=== PATIENT | male | born 1950 | race Caucasian/White ===

== ENCOUNTER 2019-10-10 07:18 | Inpatient (IN) ==
[2019-10-10] MEDS ORDERED: ASPIRIN PO ONE (07:25)
[2019-10-10] MEDS ORDERED: ASPIRIN PR ONE (07:25)
[2019-10-10 07:43] LABS: BASO# 0.03 X1000 (0.0-0.2); BASO% 0.2 % (0.0-0.8); EOS# 0.21 X1000 (0.0-0.7); EOS% 1.5 % (0.0-10.0); HEMATOCRIT 41.2 % (42.0-52.0); HEMOGLOBIN 13.5 g/dL (14.0-18.0); IMM GRAN# 0.04 X1000 (0.0-0.04); IMM GRAN% 0.3 % (0.0-0.5); LYMPH# 1.93 X1000 (1.2-3.4); LYMPH% 14.1 % (20.5-51.1); MCH 27.6 PG (27-31); MCHC 32.8 g/dL (33-37); MCV 84.3 FL (81-99); MONO# 1.01 X1000 (0.11-0.59); MONO% 7.4 % (1.7-9.3); MPV 10.1 FL (7.4-10.4); NEUT# 10.46 X1000 (1.4-6.5); NEUT% 76.5 % (42.2-75.2); PLT 297 X1000 (130-400); RBC 4.89 XMIL (4.7-6.1); RDW 14.2 % (11.5-14.5); WBC 13.68 X1000 (4.8-10.8)
--- NOTE | 2019-10-10 07:45 | PROVIDER DOCUMENTATION ---
HPI-Cardiac General - General Chief Complaint: Chest Pain Stated Complaint: CHEST PAIN Time Seen by Provider: 10/10/19 07:32 Allergies/Adverse Reactions: Patient Allergies Allergy/AdvReac Type Severity Reaction Status Date / Time No Known Allergies Allergy Verified 03/11/19 20:05 Home Medications: Home Medication List Medication Instructions Recorded Confirmed Last Taken Type ATORVAstatin [Lipitor] 40 mg PO QHS 03/29/15 10/10/19 03/28/15 History Glipizide 10 mg PO DAILY 03/29/15 10/10/19 03/28/15 History Lisinopril 5 mg PO DAILY 03/29/15 10/10/19 03/28/15 History Metformin [Glucophage] 500 mg PO BID CC 03/29/15 10/10/19 03/28/15 History Aspirin 81 mg PO DAILY 10/10/19 10/10/19 Unknown History Metoprolol Succinate 50 mg PO DAILY 10/10/19 10/10/19 Unknown History Sitagliptin Phosphate [Januvia] 100 mg PO DAILY 10/10/19 10/10/19 Unknown History - History of Present Illness-Cardiac Nature of Presenting Problem: 68 y/o male with history of CAD, HTN, DM presented with left sided chest pain that woke him this morning at 2am, not positional or pleuritic. patient denied fever or cough Location: reports: substernal Quality of Pain: reports: pressure, tightness Severity in ED: moderate Onset/Duration: abrupt Timing: still present, improving Context/Activities at Onset: reports: none Modifying Factors: improves with: nothing History of arrythmia: reports: none Recent use of:: reports: no stimulants. denies: caffeine, decongestant, cocaine, amphetamine Associated Symptoms: denies: abdominal pain Similar Symptoms Previously?: No Recently Seen Here or By Another Healthcare Provider: No Review of Systems - Adult - REVIEW OF SYSTEMS - ADULT Constitutional: denies: fever, fatique Eyes: reports: no symptoms reported Ears, Nose, Mouth & Throat: reports: no symptoms reported Cardiovascular: reports: see HPI, chest pain Respiratory: reports: see HPI. denies: cough Gastrointestinal: reports: no symptoms reported Genitourinary: reports: no symptoms reported Musculoskeletal: reports: no symptoms reported Integumentary: reports: no symptoms reported Neurological: reports: no symptoms reported Psychiatric: reports: no symptoms reported Endocrine: reports: no symptoms reported Hematologic/Lymphatic: reports: no symptoms reported Allergic/Immunologic: reports: no symptoms reported Past History - Adult - PAST MEDICAL HISTORY-ADULT Review of Records: reports: Nursing Assessment Review Major Childhood Illnesses: reports: denies history Cardiovascular: reports: CAD, HTN, hyperlipidemia, [place] Endocrine/Immune: reports: Diabetes - PRIOR SURGERIES/PROCEDURES Surgical/Procedure History: reports: appendectomy, CABG, cardiac stent, tonsillectomy - IMMUNIZATION STATUS Childhood Immunizations: See Nurse Assessment Flu Vaccine: See Nurse Assessment - FAMILY HISTORY Family History: reviewed, not pertinent Physical Exam-General - PHYSICAL EXAM-ADULT Initial Vital Signs Reviewed: Yes - CONSTITUTIONAL General Appearance: alert, no apparent distress - EYES Eyes: PERRL/EOMI - HEAD, EARS, NOSE, MOUTH & THROAT HENMT: normocephalic/atraumatic, moist mucous membranes - NECK Neck: non-tender, supple - RESPIRATORY Respiratory: chest non-tender, lungs clear, normal breath sounds, no pleuratic chest pain, no respiratory distress, no accessory muscle use - CARDIOVASCULAR Cardiovascular: normal peripheral pulses, regular rate, rhythm, no edema, no gallop, no JVD, no murmur - GASTROINTESTINAL (ABDOMEN) Abdominal Exam: non tender, soft - LYMPHATIC Lymphatic: no adenopathy - MUSCULOSKELETAL Back Exam: no CVA tenderness, no vertebral tenderness Extremity: non-tender, normal gait - SKIN Integumentary: normal turgor, warm/dry - NEUROLOGIC Neurologic: grossly normal, no motor/sensory deficits - PSYCHIATRIC Psych/Mental Status: normal mood/affect - HEART Score HEART Score: History: Slightly Suspicious HEART Score: ECG: Non-Specific Repolarization Disturbance/LBBB/PM HEART Score: Age: > or = 65 Years HEART Score: Risk Factors for Atherosclerotic Disease: > or = 3 Risk Factors or History of Atherosclerotic Disease HEART Score: Troponin: < or = Normal Limit Total HEART Score:: 5 Progress - PLAN OF CARE/RESULTS Progress/Plan/Lab Results: Vital Signs - 8 hr 10/10/19 07:22 Temperature 96.9 F L Pulse Rate 58 L Respiratory Rate 18 Blood Pressure 185/76 O2 Sat by Pulse Oximetry 99 Laboratory Results - last 24 hr 10/10/19 10/10/19 10/10/19 07:31 07:31 07:31 WBC 13.68 H RBC 4.89 Hgb 13.5 L Hct 41.2 L MCV 84.3 MCH 27.6 MCHC 32.8 L RDW Std Deviation 14.2 Plt Count 297 MPV 10.1 Immature Gran % (Auto) 0.3 Neut % (Auto) 76.5 H Lymph % (Auto) 14.1 L Hudson % (Auto) 7.4 Eos % (Auto) 1.5 Baso % (Auto) 0.2 Immature Gran # (Auto) 0.04 Neut # (Auto) 10.46 H Lymph # (Auto) 1.93 Hudson # (Auto) 1.01 H Eos # (Auto) 0.21 Baso # (Auto) 0.03 PT INR PTT (Actin FS) Sodium 140 Potassium 4.5 Chloride 102 Carbon Dioxide 25 Anion Gap 13 BUN 13 Creatinine 0.9 Estimated GFR/1.73 m2 > 60 BUN/Creatinine Ratio 14 Glucose 257 H Calculated Osmolality 288 Calcium 9.6 Total Bilirubin 0.30 AST 16 ALT 14 Alkaline Phosphatase 61 Creatine Kinase 225 H Creatine Kinase Index 1.8 CK-MB (CK-2) 4.09 Troponin T Cof-F-Jvbxqohtgop Pept 206 Total Protein 7.3 Albumin 4.5 Globulin 3.0 Albumin/Globulin Ratio 2.0 10/10/19 10/10/19 07:31 07:31 WBC RBC Hgb Hct MCV MCH MCHC RDW Std Deviation Plt Count MPV Immature Gran % (Auto) Neut % (Auto) Lymph % (Auto) Hudson % (Auto) Eos % (Auto) Baso % (Auto) Immature Gran # (Auto) Neut # (Auto) Lymph # (Auto) Hudson # (Auto) Eos # (Auto) Baso # (Auto) PT 12.6 INR 0.90 PTT (Actin FS) 30.8 Sodium Potassium Chloride Carbon Dioxide Anion Gap BUN Creatinine Estimated GFR/1.73 m2 BUN/Creatinine Ratio Glucose Calculated Osmolality Calcium Total Bilirubin AST ALT Alkaline Phosphatase Creatine Kinase Creatine Kinase Index CK-MB (CK-2) Troponin T < 0.010 Aft-U-Poclrcwffud Pept Total Protein Albumin Globulin Albumin/Globulin Ratio Orders Category Date Time Status Cardiac Monitoring DIRECTED Care 10/10/19 07:25 Active Oxygen Therapy- ED Nursing DIRECTED Care 10/10/19 07:25 Active Saline Loc NOW Care 10/10/19 07:25 Active CHEST-2 VIEWS [RAD] Stat Exams 10/10/19 07:25 Completed CBC WITH ELECTRONIC DIFF [HEME] Stat Lab 10/10/19 07:31 Completed CK PROFILE [SP CHEM] Stat Lab 10/10/19 07:31 Completed COMPREHENSIVE METABOLIC PANEL [CHEM] Stat Lab 10/10/19 07:31 Completed PRO B-NATRIURETIC PEPTIDE Stat Lab 10/10/19 07:31 Completed PROTIME WITH INR [COAG] Stat Lab 10/10/19 07:31 Completed PTT [COAG] Stat Lab 10/10/19 07:31 Completed TROPONIN T Stat Lab 10/10/19 07:31 Completed Aspirin Med 10/10/19 07:25 Discontinued 300 mg FL NOW ONE Aspirin Med 10/10/19 07:25 Discontinued 325 mg PO NOW ONE CP/SOB/Palp >45 yrs of Age Stat Oth 10/10/19 07:25 Ordered EKG [EKG] Stat Ther 10/10/19 07:25 Ordered Result Diagrams: 10/10/19 07:31 10/10/19 07:31 - REASSESSMENT Reassessment #1 Time Reassessed: 09:17 Status: improving (no more chest pain, cabg in 2017, body painter Dr Sky) - EKG 1 Time of EKG reading by physician:: 07:31 EKG Interpretation (*Must complete 3 of following elements*): Normal Rate: 57 Rhythm: itz Novice: normal QRS: normal - CONSULTS/PCP/HOSPITALIST Notification #1 *Consult/PCP/Hospitalist*: Dr Ambrocio Time Discussed: 09:10 Consult Disposition: Will see in ED, Admit Departure - Departure Date of Disposition Decision: 10/10/19 Time of Disposition Decision: 09:17 DIAGNOSIS: Chest pain Qualifiers: Chest pain type: unspecified Qualified Code(s): R07.9 - Chest pain, unspecified Disposition: ADMITTED INPATIENT 09 Certified Medical Emergency: Emergent Condition: Good Referrals and Follow-Ups: Marciano Cardenas MD [Primary Care Provider] - - Critical Care Note This patient required my direct & personal management of CC.: No Attestation - Physician/ LILI Attestation Patient care was provided by Advanced Practice Provider:: No The physician spent face to face time with patient:: Yes Advanced Practice Provider documentation review:: Supervising physician onsite and consulted in the evaluation and care of this patient. The physician did have a face to face encounter with the patient.
[2019-10-10 07:57] LABS: INR 0.9; PROTIME 12.6 Seconds (11.0-16.0)
[2019-10-10 07:58] LABS: PTT 30.8 Seconds (22.3-41.8)
[2019-10-10 08:04] LABS: AGAP 13; ALBUMIN 4.5 g/dL (3.5-5.0); ALKALINE PHOSPHATASE 61 U/L (32-122); BUN 13 mg/dL (8-22); CALCIUM 9.6 mg/dL (8.8-10.2); CHLORIDE 102 mmol/L (98-107); COSMO 288; CREATININE 0.9 mg/dL (0.7-1.2); ESTIMATED GFR > 60; GLUCOSE 257 mg/dL (70-104); GOT 16 U/L (10-34); GPT 14 U/L (10-44); POTASSIUM 4.5 mmol/L (3.5-5.1); SODIUM 140 mmol/L (136-145); TCO2 25 mmol/L (25-35); TOTAL PROTEIN 7.3 g/dL (6.3-8.3)
[2019-10-10 08:06] LABS: CK PROFILE 225 U/L (24-204)
--- NOTE | 2019-10-10 08:23 | Diag Imaging Result Doc PS360 ---
EXAM: CHEST-2 VIEWS HISTORY: chest pain TECHNIQUE: Two views COMPARISON: 03/29/2015 FINDINGS: The lungs are well expanded. The heart is not enlarged. There are sternal wires. The vessels are not distended. There are no infiltrates. No pleural effusions. IMPRESSION: No acute abnormality. Electronically signed by Ankit Bowser 10/10/2019 8:20 AM
[2019-10-10 08:24] LABS: CK INDEX 1.8 (0.0-2.5); CK-MB 4.09 ng/mL (0.0-5.0)
[2019-10-10] MEDS ORDERED: TYLENOL PO PRN (09:48)
[2019-10-10] MEDS ORDERED: MORPHINE IV PRN (09:48)
[2019-10-10] MEDS ORDERED: ZOFRAN IV PRN (09:48)
[2019-10-10] MEDS ORDERED: NITROGLYCERIN SL PRN (09:48)
--- NOTE | 2019-10-10 10:19 | EKG Report ---
Test Performed on : 10/10/2019 07:31:05 AM Test Reason : chest pain Blood Pressure : / mmHG Vent. Rate : 057 BPM Atrial Rate : 057 BPM P-R Int : 188 ms QRS Dur : 096 ms QT Int : 440 ms P-R-T Axes : 025 053 049 degrees QTc Int : 428 ms Sinus bradycardia. Otherwise normal ECG When compared with ECG of 19-JUN-2018 09:09, No significant change was found Unconfirmed Result
[2019-10-10] MEDS: HUMULIN R (PARKWAY) SUBQ SCH ×3 (11:50→21:32)
[2019-10-10] MEDS: LOVENOX SUBQ SCH (14:25)
--- NOTE | 2019-10-10 15:31 | HISTORY AND PHYSICAL ---
PRIMARY CARE PROVIDER: Marciano Cardenas. OVENS SUPERVISOR: Dr. Carson out of [place]. CHIEF COMPLAINT: Chest pain. HISTORY OF PRESENT ILLNESS: Mr. Mario Lewis is a 68-year-old male with a medical history of coronary artery disease, myocardial infarction in 2007 where he required a stent, and then coronary artery bypass grafting in 2017. Also, history of hypertension, hyperlipidemia, and diabetes mellitus type 2. He states that he was awoken at 2:00 this morning with sudden onset of chest pain and felt like pressure caused nausea and vomiting, with some mild shortness of breath, but did not radiate anywhere. It is intermittent and it lasted until about 8:00 this morning after receiving aspirin, adult dose or full-dose aspirin. Two set of the cardiac enzymes are negative. He has no ST elevations on the EKG. He has a little bit of bradycardia, but he is on a beta hattie at home. We will admit overnight. Do a stress test in the morning. If it is okay, he could go home and see his heel blacker as an outpatient. Currently, he is completely chest pain free. PAST MEDICAL HISTORY: 1. Coronary artery disease with MA in 2007. 2. Hypertension. 3. Hyperlipidemia. 4. Diabetes mellitus type 2. 5. Intermittent vertigo. 6. Right foot ulcer due to a nail that has healed. PAST SURGICAL HISTORY: 1. Appendectomy. 2. Cardiac stent in 2007. 3. CABG in 2017. 4. Tonsillectomy. SOCIAL HISTORY: Denies tobacco, alcohol or illicit drug use. Lives at home with his son. Works in [employer] care. FAMILY HISTORY: He has a son that at 36. It was from a myocardial infarction apparently. Mother had diabetes, and she had heart disease at 79. Father had diabetes and heart disease having at 84. His father was diagnosed with diabetes at the age of 69. ALLERGIES: No known drug allergies. HOME MEDICATIONS: 1. Lipitor 40 mg p.o. nightly. 2. Aspirin 81 mg p.o. daily. 3. Glipizide 10 mg p.o. daily. 4. Metformin 500 mg p.o. twice daily. 5. Januvia 100 mg p.o. daily. 6. Lisinopril 5 mg p.o. daily. 7. Toprol 50 mg p.o. daily. REVIEW OF SYSTEMS: Fourteen point review of systems are complete, and all were negative except for those mentioned above in HPI. He denied fever. He also stated that over the weekend he did have a cough with a little bit of yellow phlegm, but that is resolved. PHYSICAL EXAMINATION: VITAL SIGNS: Temperature 97.5 degrees, heart rate 59, respiratory rate 18, blood pressure 141/62, O2 saturation 100% on room air, 6 feet 1 inches tall, 214 pounds, and BMI is 28.5. GENERAL: Mr. Mario Lewis is a 68-year-old male. He is in no acute distress. He is able to answer questions appropriately. HEENT: Atraumatic, normocephalic. Pupils equal, round, reactive to light. Extraocular movements intact. Mucous membranes moist. NECK: Trachea midline. CARDIOVASCULAR: S1, S2. Bradycardic rate and rhythm. No rubs, gallops, murmurs. No lower extremity edema. +2 dorsalis and radial pulses. Negative JVD or carotid bruits. PULMONARY: Clear to auscultation. Bilateral breath sounds. No accessory muscle use or work of breathing noted. ABDOMEN: Soft, nontender, and nondistended. Positive bowel sounds x4. EXTREMITIES: Moves all extremities equally. Full range of motion. NEUROLOGIC: A and O x3. Follows commands. Sensory is intact. SKIN: Warm, dry, and intact. LABORATORY DATA: White blood cells 13,000 hemoglobin 13, hematocrit 41, platelet count 297,000. INR 0.90, PTT is 30.8. Sodium 140, potassium 4.5, BUN 13, creatinine 0.9, glucose 257, calcium 9.6, bilirubin 0.30, AST 16, ALT 14, CK 198. Troponin less than 0.01 x 2. ProBNP 206. Albumin 4.5. IMAGING: EKG sinus bradycardia. Rate 57, QTc 428. No ST elevation. Chest x- ray with no acute findings. ASSESSMENT AND PLAN: 1. Chest pain negative for cardiac enzymes. So far, no ST changes on the EKG though does have history of CAD, CABG, and stent. He is on aspirin, statin and beta hattie. We will do serial cardiac enzymes. Recheck an EKG in the morning. Do a stress test in the morning. 2. Hypertension. Continue home medications. 3. Hyperlipidemia. Continue statin. 4. Diabetes mellitus type 2. We resumed his Glucotrol, and his Novuvia. Holding his metformin for now. He will be on sliding scale insulin with low dose sliding scale insulin with pattern blood glucoses. 5. History of vertigo. No problems with that right now. 6. Deep venous thrombosis prophylaxis. Lovenox. Dictated by CHIP Gill for Fabio Winn MD Addendum: Patient seen and examined by myself. Agree with CHIP note. It reflects my assessment and plan. Patient is being admitted to hospital for chest pain workup. Will order echocardiogram and Lexiscan and will go from there. cc: CHIP Gill MD [facility]
[2019-10-10] MEDS ORDERED: LIPITOR PO SCH (21:00)
[2019-10-11 06:24] LABS: BASO# 0.03 X1000 (0.0-0.2); BASO% 0.4 % (0.0-0.8); EOS# 0.23 X1000 (0.0-0.7); EOS% 2.8 % (0.0-10.0); HEMATOCRIT 38.2 % (42.0-52.0); HEMOGLOBIN 12.3 g/dL (14.0-18.0); IMM GRAN# 0.01 X1000 (0.0-0.04); IMM GRAN% 0.1 % (0.0-0.5); LYMPH# 1.96 X1000 (1.2-3.4); LYMPH% 23.6 % (20.5-51.1); MCHC 32.2 g/dL (33-37); MCV 83.8 FL (81-99); MONO# 0.86 X1000 (0.11-0.59); MONO% 10.3 % (1.7-9.3); MPV 10.5 FL (7.4-10.4); NEUT# 5.22 X1000 (1.4-6.5); NEUT% 62.8 % (42.2-75.2); PLT 263 X1000 (130-400); RBC 4.56 XMIL (4.7-6.1); WBC 8.31 X1000 (4.8-10.8)
--- NOTE | 2019-10-11 06:26 | EKG Report ---
Test Performed on : 10/11/2019 06:06:00 AM Test Reason : chest pain Blood Pressure : / mmHG Vent. Rate : 059 BPM Atrial Rate : 059 BPM P-R Int : 192 ms QRS Dur : 100 ms QT Int : 436 ms P-R-T Axes : 025 055 052 degrees QTc Int : 431 ms Sinus bradycardia. Septal infarct , age undetermined Abnormal ECG When compared with ECG of 10-OCT-2019 07:31, (Unconfirmed) No significant change was found Confirmed by Mann Garcia MD ([id number]) on 10/27/2019 7:38:20 AM
[2019-10-11] MEDS: HUMULIN R (PARKWAY) SUBQ SCH ×3 (06:29→16:40)
[2019-10-11 06:37] LABS: AGAP 10; ALBUMIN 3.9 g/dL (3.5-5.0); ALKALINE PHOSPHATASE 53 U/L (32-122); BUN 13 mg/dL (8-22); CHLORIDE 105 mmol/L (98-107); COSMO 282; CREATININE 0.8 mg/dL (0.7-1.2); ESTIMATED GFR > 60; GLUCOSE 208 mg/dL (70-104); GOT 14 U/L (10-34); GPT 12 U/L (10-44); MAGNESIUM 1.9 mg/dL (1.5-2.7); SODIUM 138 mmol/L (136-145); TCO2 23 mmol/L (25-35); TOTAL PROTEIN 6.8 g/dL (6.3-8.3)
[2019-10-11] MEDS ORDERED: PRILOSEC PO SCH (07:00)
[2019-10-11] MEDS ORDERED: GLUCOTROL PO SCH (08:00)
[2019-10-11] MEDS ORDERED: JANUVIA PO SCH (09:00)
[2019-10-11] MEDS ORDERED: TOPROL XL PO SCH (09:00)
[2019-10-11] MEDS ORDERED: ASPIRIN EC PO SCH (09:00)
[2019-10-11] MEDS ORDERED: PRINIVIL PO SCH (09:00)
--- NOTE | 2019-10-11 10:51 | GRADED EXERCISE REPORT ---
DATE: 10/11/2019 PROCEDURE: Lexiscan administration EKG portion. INDICATION: Chest pain. ORDERING PHYSICIAN: Lela Ambrocio. FINDINGS: The patient underwent Lexiscan per protocol. Heart rate 56, blood pressure 141/67. Baseline EKG really was normal and I do not see really any ischemic changes. He underwent 0.4 mg administration of Lexiscan. He did not develop any chest pain subsequently during the test. No noteworthy ST changes were made. Peak heart rate was 90. Peak blood pressure was 141/67. The test was felt to be clinically and electrically negative. Myocardial perfusion reported separately. cc: Bebo Torres MD
[2019-10-11] MEDS: LOVENOX SUBQ SCH (12:13)
--- NOTE | 2019-10-11 13:33 | Diag Imaging Result Document ---
PROCEDURE NAME: MYOCARDIAL PERF SCAN, STR/REST - 10/11/2019 STUDY PERFORMED: Lexiscan Cardiolite stress test, Lexiscan by Dr. Torres. FINDINGS: Following Lexiscan infusion, Cardiolite was injected, 14.9 mCi of Cardiolite was injected for the rest phase, 40.1 mCi of Cardiolite was injected for the stress phase. Images revealed chest wall and diaphragmatic attenuation. Normal left ventricular cavity size. Normal myocardial perfusion. Left ventricular ejection fraction 74%. CONCLUSIONS: 1. Normal myocardial perfusion. 2. Left ventricular ejection fraction by gated SPECT was 74%. cc: MD Lela Guerra CRNP
[2019-10-11] MEDS ORDERED: LEXISCAN ONE (14:00)
[2019-10-11 16:02] VITALS: BP 124/70
--- NOTE | 2019-10-12 18:30 | DISCHARGE SUMMARY ---
ADMISSION DATE: 10/10/2019 DISCHARGE DATE: 10/11/2019 ADMISSION DIAGNOSES: 1. Chest pain. Negative for cardiac enzymes. 2. Hypertension. 3. Hyperlipidemia. 4. Diabetes mellitus type 2. 5. History of vertigo. DISCHARGE DIAGNOSES: 1. Chest pain. Negative cardiac enzymes. Negative cardiac stress test. Has history of coronary artery disease and coronary artery bypass graft with stent. No more chest pain episodes. 2. Hypertension, stable. 3. Hyperlipidemia. 4. Diabetes mellitus type 2. No changes. CONSULTATIONS: None. SURGERIES AND PROCEDURES: He had a stress test which the myocardial perfusion scan that was performed was normal and so was the exercise stress test. HOSPITAL COURSE: Mr. Mario Lewis is a 68-year-old, male, with a medical history of coronary artery disease. He had a heart attack in 2007. He has had cardiac stent in 2007 and then had a CABG in 2017. Apparently, around 2:00 in the morning prior to being admitted, he was having a sudden onset of chest pain. It felt like pressure that caused nausea, vomiting, shortness of breath, without radiation. It was intermittent all the way up until 8:00 in the morning when he first presented here, after he received aspirin full dose. He had 2 sets of cardiac enzymes that were negative. The EKG was without ST elevations. He is a little bit bradycardic, but blood pressure is stable and he is on a beta hattie at home. He stayed overnight, had a cardiac stress test this morning, which was negative. He had no more cardiac complaints and is stable for discharge home. DISCHARGE VITAL SIGNS: Temperature 97.6 degrees, heart rate 58, respiratory rate 16, blood pressure 124/70, O2 saturation 100% on room air. DISCHARGE LABORATORY DATA: White blood cells 8000, hemoglobin 12, hematocrit 38, platelet count 263,000. Sodium 138, potassium 4.0, BUN 13, creatinine 0.8, glucose 208, calcium 9.0, magnesium 1.9, bilirubin 0.40, AST 14, ALT 12. CK 147, troponin less than 0.01. Albumin 3.9. Triglycerides 126, total cholesterol 121. IMAGING: Chest x-ray, no acute findings. DISCHARGE MEDICATIONS: 1. Lipitor 40 mg p.o. nightly. 2. Aspirin 81 mg p.o. daily. 3. Glipizide 10 mg p.o. daily. 4. Metformin 500 mg p.o. twice daily. 5. Januvia 100 mg p.o. daily. 6. Lisinopril 5 mg p.o. daily. 7. Metoprolol succinate 50 mg p.o. daily. DISCHARGE DIET: Diabetic, heart healthy. DISCHARGE ACTIVITY: As tolerated. DISCHARGE PHYSICIAN FOLLOWUPS: Primary care provider, Marciano Cardenas. DISCHARGE INSTRUCTIONS: If chest pain returns, please seek medical attention immediately. Take all medications as prescribed. DISCHARGE DISPOSITION: Home. Dictated by CHIP Gill for Fabio Winn MD Addendum: Patient seen and examined by myself. Agree with CHIP note. It reflects my assessment and plan. Patient is being discharged from hospital in stable condition and will be seen by PCP in a week. cc: CHIP Gill MD [facility]
== END 2019-10-11 18:21 | disposition home or self-care (01) | DRG 313 ==
LOC: P.ED 07:18 → P.MEDSURG 09:58 → SUATTDRO 09:58
PROVIDERS: ATTEND Internal Medicine